=== PATIENT | female | born 1990 | race Caucasian/White ===

== ENCOUNTER 2018-10-19 19:00 | Emergency (ER) | payer SELFPAY ==
[~2018-10-19] VITALS: Ht 162.6 cm; Wt 60.0 kg
[2018-10-19] MEDS ORDERED: ONDANSETRON HCL 4MG/2ML INJ IV STA (19:49)
[2018-10-19] MEDS ORDERED: SODIUM CHLORIDE 0.9% 1,000 ML IV ONE (19:49)
[2018-10-19] MEDS ORDERED: MECLIZINE 25MG TABLET PO ONE (20:00)
[2018-10-19 20:30] LABS: BASOPHILS % 0.8 % (0.0-2.0); HEMATOCRIT. 43.6 % (36.0-48.0); HEMOGLOBIN. 14.9 g/dL (12.0-16.0); LYMPHOCYTES % 57.1 % (20.0-50.0); MEAN CORPUSCULAR HEMOGLOBIN 32.4 pg (28.0-32.0); MEAN CORPUSCULAR VOLUME 94.4 fL (81.0-99.0); MEAN PLATELET VOLUME 9.9 fl (7.4-10.4); MONOCYTES % 8.5 % (2.0-8.0); NEUTROPHILS % 32.6 % (40.0-76.0); PLATELET 243 x1000/uL (130-400); RED BLOOD CELL COUNT 4.62 mill/uL (4.2-5.4); RED CELL DISTRIBUTION WIDTH 13.4 % (11.6-14.6)
[2018-10-19 20:34] LABS: CHLORIDE 102 mEq/L (98-107)
[2018-10-19 20:37] LABS: HCG SCREEN NEGATIVE
[2018-10-19 20:38] LABS: ETHANOL BLOOD < 10 mg/dL
[2018-10-19] MEDS ORDERED: POTASSIUM CHLORIDE 20MEQ TABLET SR PO ONE (21:15)
[2018-10-19 22:51] VITALS: BP 113/72
== END 2018-10-19 22:52 | disposition home or self-care (01) ==
LOC: ER 19:00
DX: R42 Dizziness and giddiness (principal); F45.8 Other somatoform disorders; E86.0 Dehydration; E87.6 Hypokalemia; Z88.2 Allergy status to sulfonamides
CPT/HCPCS: 36415; 70450; 80053; 80320; 84703; 85025; 93005; 96361; 96374; 99284; J2405; J7030; J8597; G0480